=== PATIENT | female | born 2000 | race Caucasian/White ===

== ENCOUNTER 2021-12-02 19:32 | Emergency (ER) | payer OTHER ==
[~2021-12-02 19:32] MED LIST: FLOMAX 0.4 MG0.4 MG PO; TORADOL 10 MG T10 MG PO; ZOFRAN4 MG PO
[2021-12-02] MEDS ORDERED: CYCLOBENZAPRINE5 MG PO (20:47)
[2021-12-02] MEDS ORDERED: IBU800 MG PO (20:47)
== END 2021-12-02 21:00 | disposition home or self-care (01) ==
LOC: ER1 19:32
DX: S16.1XXA Strain of muscle, fascia and tendon at neck level, initial encounter (principal); R25.2 Cramp and spasm; V49.40XA Driver injured in collision with unspecified motor vehicles in traffic accident, initial encounter; Y92.410 Unspecified street and highway as the place of occurrence of the external cause
CPT/HCPCS: 99283